=== PATIENT | male | born 1980 | race African-American/Black ===

== ENCOUNTER 2016-05-30 02:53 | Emergency (ER) | payer SELFPAY ==
[2016-05-30] MEDS ORDERED: Acetaminophen 500 MG TAB ONE (03:30)
--- NOTE | 2016-05-30 08:19 | CT ---
PRELIMINARY REPORT/[facility]/EMERGENCY AFTER HOURS PROCEDURE: EXAM: CT Maxillofacial Without Intravenous Contrast CLINICAL HISTORY: 35 years old, male; Pain and injury or trauma; Fall; Late effect from previous injury; Blunt trauma (contusions or hematomas); Jaw; Left; Jaw pain; Injury date: 1 week ago; Injury details: Says he fel l 1 week ago onto some rocks. He states that he was unable to come to er at first because he couldn' t miss work. ; Patient HX: 35 year old male presents with persistent pain in left jaw with difficult y opening and closing mouth since he fell 1 week ago onto some rocks. TECHNIQUE: Axial computed tomography images of the face without intravenous contrast. This CT exam was performe d using one or more of the following dose reduction techniques: automated exposure control, adjustme nt of the mA and/or kV according to patient size, and/or use of iterative reconstruction technique. Coronal and sagittal reformatted images were created and reviewed. COMPARISON: No relevant prior studies available. FINDINGS: There is a mildly displaced fracture involving the angle of left mandible, occurring just posterior to the last remaining molar tooth. Isolated mandibular fractures are relatively uncommon, but I do not see definite evidence for additi onal fracture at this time. Currently, the temporomandibular joints appear in satisfactory position/alignment. No definite evidence of other acute facial bone/orbital fracture. Orbital contents appear intact/unremarkable. Several polyps or retention cysts in the maxillary sinuses. Some fluid/mucus in the left maxillary s inus. IMPRESSION: Mildly displaced fracture involving the angle of left mandible, see above details. No other definite acute facial bone/orbital fracture by CT. Paranasal sinus findings as discussed above. Thank you for allowing us to participate in the care of your patient. Dictated and Authenticated by: Walker Kapoor MD 05/30/2016 4:42 AM Central Time ([place] \T\ Thao' FINAL REPORT CT FACIAL BONES WITH CORONAL AND SAGITTAL REFORMATIONS: Date: 05/30/16 IMPRESSION: I agree with the preliminary report given by Dr. Walker Kapoor of [facility]. POS: [facility]
== END 2016-05-30 04:25 | disposition home or self-care (01) ==
LOC: NAV ERS 02:53
DX: S02.609A Fracture of mandible, unspecified, initial encounter for closed fracture (principal); J45.909 Unspecified asthma, uncomplicated; F17.210 Nicotine dependence, cigarettes, uncomplicated; W20.8XXA Other cause of strike by thrown, projected or falling object, initial encounter
CPT/HCPCS: 70486

== ENCOUNTER 2017-01-15 01:27 | Emergency (ER) | payer SELFPAY ==
[2017-01-15] MEDS ORDERED: Adacel (T-DAP) 0.5 ML VIAL ONE (01:47)
[2017-01-15] MEDS ORDERED: Bacitracin Zinc 1 Packet ONE (01:49)
== END 2017-01-15 02:35 | disposition home or self-care (01) ==
LOC: NAV ERS 01:27
DX: L02.31 Cutaneous abscess of buttock (principal); J45.909 Unspecified asthma, uncomplicated; F17.210 Nicotine dependence, cigarettes, uncomplicated
CPT/HCPCS: 10060; 90471; 90715

== ENCOUNTER 2018-01-20 07:44 | Emergency (ER) | payer OTHER, SELFPAY ==
[2018-01-20] MEDS ORDERED: Ibuprofen 800 MG TAB ONE (08:16)
--- NOTE | 2018-01-20 08:51 | RAD ---
MANDIBLE 6 VIEWS: Date: 01/20/18 HISTORY: Injury to mandible. FINDINGS: No evidence of mandibular fracture. Condyles appear normally positioned. IMPRESSION: No evidence of mandibular fracture. POS: [facility]
== END 2018-01-20 09:00 | disposition home or self-care (01) ==
LOC: NAV ERS 07:44
DX: S01.511A Laceration without foreign body of lip, initial encounter (principal); S50.12XA Contusion of left forearm, initial encounter; S40.012A Contusion of left shoulder, initial encounter; J45.909 Unspecified asthma, uncomplicated; F17.210 Nicotine dependence, cigarettes, uncomplicated; W55.22XA Struck by cow, initial encounter
CPT/HCPCS: 70110

== ENCOUNTER 2018-02-24 10:46 | Emergency (ER) | payer SELFPAY | END 2018-02-24 11:18 | disposition home or self-care (01) | LOC: NAV ERS 10:46 | DX: M25.512 Pain in left shoulder (principal); M25.551 Pain in right hip; F17.290 Nicotine dependence, other tobacco product, uncomplicated; J45.909 Unspecified asthma, uncomplicated; Z71.6 Tobacco abuse counseling | CPT/HCPCS: 99406 ==

== ENCOUNTER 2018-07-10 04:18 | Emergency (ER) | payer SELFPAY | END 2018-07-10 04:44 | LOC: NAV ERS 04:18 | DX: S00.33XA Contusion of nose, initial encounter (principal); F10.129 Alcohol abuse with intoxication, unspecified; J45.909 Unspecified asthma, uncomplicated; F17.210 Nicotine dependence, cigarettes, uncomplicated; X58.XXXA Exposure to other specified factors, initial encounter | CPT/HCPCS: 99283 ==

== ENCOUNTER 2019-03-16 14:02 | Outpatient (CLI) | payer OTHER ==
--- NOTE | 2019-03-16 14:21 | RAD ---
XR Chest Pa Lat STANDARD HISTORY: Disability evaluation. Cough, congestion and fever since yesterday COMPARISON: None FINDINGS: The heart size is normal. The lungs are well expanded without focal areas of consolidation, pneumothorax or pleural effusions. There is a tiny calcified granuloma in the right lower lung. IMPRESSION: No radiographic evidence of acute cardiopulmonary process.
== END 2019-03-16 14:03 | disposition home or self-care (01) ==
LOC: NAV RAD 14:02
PROVIDERS: ATTEND Family Medicine
DX: Z02.71 Encounter for disability determination (principal); J45.909 Unspecified asthma, uncomplicated
CPT/HCPCS: 71046

== ENCOUNTER → 2019-06-18 | Emergency (ER) | payer SELFPAY ==
[~2019-06-18] MED LIST: Sterile Water 10 ML ONE; Ziprasidone 20 MG VIAL ONE
[2019-06-18 17:39] LABS: Bilirubin Negative (Negative); Blood, Urine Negative (Negative); Clarity Clear (Clear); Glucose, Urine (Dipstick) Negative (Negative); Leukocyte Negative (Negative); Nitrite Negative (Negative); Protein, Urine (Dipstick) Negative (Neg-Trace); Urobilinogen 0.2 mg/dL (Less than 2)
[2019-06-18 17:50] LABS: Amphetamine Not Detected (NotDetected); Barbiturates Screen Not Detected (NotDetected); Benzodiazepine Screen Detected (NotDetected); Cocaine Metabolite Screen Not Detected (NotDetected); Medtox Control Line Valid? VALID (VALID); Methadone Not Detected (NotDetected); Methamphetamine Not Detected (NotDetected); Opiate Screen Not Detected (NotDetected); Oxycodone Screen Not Detected (NotDetected); Phencyclidine (PCP) Detected (NotDetected); THC/Cannabinoid Screen Detected (NotDetected); Tricyclic Screen Not Detected (NotDetected)
[2019-06-18 17:54] LABS: #Basophils 0.1 thou/uL (0.0-0.2); #Eosinphils 0.3 thou/uL (0.0-0.7); #Lymphocytes 1.4 thou/uL (1.20-3.40); #Monocytes 0.4 thou/uL (0.11-0.59); #Neutrophils 2.7 thou/uL (1.40-6.50); %Basophils 1.5 % (0.0-1.0); %Eosinophils 5.5 % (0.0-10.0); %Monocytes 8.9 % (0.0-10.0); %Neutrophils 56.2 % (42.0-75.0); Mean Corpuscular HGB CONC 29.1 g/dL (32.0-36.0); Mean Corpuscular Hemoglobin 23.4 pg (27.0-31.0); Mean Corpuscular Volume 80.4 fL (78.0-98.0); Mean Platelet Volume 9.1 fL (7.4-10.4); Platelet Count 182 thou/uL (130-400); Red Blood Cell (RBC) Count 4.71 mill/uL (4.70-6.10); White Blood Cell (WBC) Count 4.8 thou/uL (4.8-10.8)
[2019-06-18 18:04] LABS: ALT (SGPT) 35 U/L (8-55); AST (SGOT) 29 U/L (5-34); Albumin 4.4 g/dL (3.5-5.0); Alkaline Phosphatase 66 U/L (40-110); Anion Gap 21 mmol/L (10-20); BUN (Urea Nitrogen) 11 mg/dL (8.9-20.6); Bilirubin, Total 0.5 mg/dL (0.2-1.2); Calc. Creatinine Clearance 0 mL/min (70-130); Calcium 8.8 mg/dL (7.8-10.44); Carbon Dioxide 18 mmol/L (22-29); Chloride 104 mmol/L (98-107); Estimated GFR-MDRD Greater than 90; Globulin 2.6 g/dL (2.4-3.5); Glucose 72 mg/dL (70-105); Potassium 3.5 mmol/L (3.5-5.1); Sodium 139 mmol/L (136-145)
[2019-06-18 18:05] LABS: Acetaminophen Less than 6.0 mcg/mL (10.0-30.0); Alcohol 57 mg/dL (Less than 10); CK (CPK) 392 U/L (30-200); Salicylate Less than 8.0 mg/dL (15.0-30.0)
== END ==
LOC: NAV ERS 16:59
DX: F31.9 Bipolar disorder, unspecified (principal); F13.10 Sedative, hypnotic or anxiolytic abuse, uncomplicated; F12.10 Cannabis abuse, uncomplicated; F20.9 Schizophrenia, unspecified; J45.909 Unspecified asthma, uncomplicated; F17.290 Nicotine dependence, other tobacco product, uncomplicated
CPT/HCPCS: 80053; 80306; 80307; 81003; 82550; 84443; 85025; 96372; 99285; J3486